=== PATIENT | female | born 1945 | race Caucasian/White ===

== ENCOUNTER 2017-06-18 23:03 | Inpatient (IN) | payer OTHER ==
[~2017-06-18] VITALS: Ht 160 cm; Wt 85.7 kg
--- NOTE | 2017-06-18 23:10 | NUR ---
Patient arrived from [facility] for Medical Clearance for MHU admission. Patient is on 5150 hold for Danger to Self. Patient was found at home with Soma overdose, patient was considered positive for Suicidal Ideation by [facility] Department.
[2017-06-18] MEDS ORDERED: ASPI-1169 PO (23:12)
[2017-06-18] MEDS ORDERED: FLUO40CA49 PO (23:12)
[2017-06-18] MEDS ORDERED: LEVO175T7 PO (23:12)
[2017-06-18] MEDS ORDERED: SIMV40TA5 PO (23:12)
[2017-06-18] MEDS ORDERED: LISI10TA5 PO (23:12)
[2017-06-18] MEDS ORDERED: FENO160T PO (23:12)
[2017-06-18] MEDS ORDERED: PIOG15TA8 PO (23:12)
[2017-06-18] MEDS ORDERED: SITA50TA PO (23:12)
[2017-06-18] MEDS ORDERED: CANA100T PO (23:12)
[2017-06-18] MEDS ORDERED: AMLO2.5T PO (23:12)
[2017-06-18] MEDS ORDERED: HYDR-3026 PO (23:12)
--- NOTE | 2017-06-19 00:35 | NUR ---
Pt. admitted to GPS, under care of Dr. Montanez Belongs List completed
[2017-06-19 01:00] VITALS: BP 145/90
[2017-06-19] MEDS ORDERED: MAGNESIUM HYDROXIDE 30 ML LIQUID UDC PO PRN (01:30)
[2017-06-19] MEDS ORDERED: MAG HYDROX/AL HYDROX/SIMETH 30 ML LIQUID UDC PO PRN (01:30)
[2017-06-19] MEDS ORDERED: ACETAMINOPHEN 325 MG TABLET PO PRN (01:30)
[2017-06-19] MEDS ORDERED: LORAZEPAM 0.5 MG TABLET PO PRN (01:30)
--- NOTE | 2017-06-19 01:30 | NUR ---
GPS:Patient Admitted from er via w/c for MHU admission. Patient is on 5150 hold for Danger to Self. Patient was found at home with Soma overdose, patient was considered positive for Suicidal Ideation by [facility] Department.a/o x2 ambulatory,no c/o pain or discomfort this time.
[2017-06-19] MEDS: TEMAZEPAM 7.5 MG CAPSULE PO PRN ×2 (02:01→20:55)
--- NOTE | 2017-06-19 02:02 | NUR ---
GPS: PATIENT C/O INSOMNIA. RESTORIL 7.5 MG PO GIVEN.
[2017-06-19] MEDS ORDERED: TEMAZEPAM 7.5 MG CAPSULE ONE (02:09)
--- NOTE | 2017-06-19 03:04 | NUR ---
GPS: PATIENT SLEEPING EYE CLOSE. PRN EFFECTIVE.
--- NOTE | 2017-06-19 06:52 | NUR ---
GPS: REMAIN CALM AND COOPERATIVE WITH MEDS AND CARE. SHOWERED THIS MORNING.SLEPT 1:45 HRS THROUGH THE NIGHT. CONTINUE PLAN OF CARE.
[2017-06-19 07:30] VITALS: BP 119/81
--- NOTE | 2017-06-19 12:28 | NUR ---
UR Note: BRANT faxed current clinicals to [facility] [[phone]/ FX:([phone]]. Tracking # [id number]
[2017-06-19] MEDS ORDERED: DEXTROSE 50% 50 ML DISP.SYRIN IV PRN (13:00)
[2017-06-19] MEDS ORDERED: INSULIN REGULAR, HUMAN 300 UNIT/3 ML VIAL SQ PRN (13:00)
--- NOTE | 2017-06-19 16:05 | NUR ---
Initial discharge instructions: Pt resides at home with her [[address],[place],[address];[phone]].SW spoke with pt's who stated he would like the pt to return home.Per pt, she would like to return home upon discharge.BRANT will speak with pt,family,and MD regarding appropriate discharge plans.SW will form a safe and proper discharge.
--- NOTE | 2017-06-19 16:10 | NUR ---
DC Note Thursday06/20/2017: Patient will be discharged back home to her [[address],[place],[address];[phone]].BRANT spoke with pt's , Nima Lepe [phone] who stated he would pick pack worker the patient at 10:00 am. Patient is aware and agreeable with discharge plans. Patient will follow-up with ([facility]) [[id number] [place] [id number]; ]. Patient will be assigned a Psychiatrist through [facility]. Patient's prescriptions may be called to [facility] in [place], [place].
[2017-06-19] MEDS: BISMUTH SUBSALICYLATE 262 MG/15 ML UDC PO PRN ×2 (16:13→22:31)
[2017-06-19 16:56] VITALS: BP 113/60
[2017-06-19] MEDS: BLOOD SUGAR DIAGNOSTIC 1 EACH STRIP VI SCH ×2 (17:35→20:45)
--- NOTE | 2017-06-19 17:54 | NUR ---
GPS/ RN- Received call from Dr Baez to discharge patient home tomorrow to ; spoke with patients Nima, he will lease picker /patient tomorrow around 10am.
[2017-06-19] MEDS ORDERED: SIMVASTATIN 40 MG TABLET PO SCH (18:00)
[2017-06-19 20:01] VITALS: BP 132/66
--- NOTE | 2017-06-20 02:45 | NUR ---
Pt is alert and oriented x 4. Pt denies s.i. Pt is being picked up by her Nima to go back home in [place], [place]. Pt is cooperative with process. Pt states that she has her regular diecast machine operator and psychiatrist. Discharge instructions are given pt verbalizes understanding. No new psych medications are initiated. Pt has Proxac at home to take it as ordered. No distress noted.
[2017-06-20] MEDS: BISMUTH SUBSALICYLATE 262 MG/15 ML UDC PO PRN ×2 (05:15→11:40)
[2017-06-20] MEDS: BLOOD SUGAR DIAGNOSTIC 1 EACH STRIP VI SCH ×2 (06:33→12:09)
[2017-06-20] MEDS ORDERED: LEVOTHYROXINE SODIUM 175 MCG TABLET PO SCH (07:00)
[2017-06-20 07:16] LABS: CREATININE 1.3 mg/dL (0.6-1.3); MAGNESIUM 1.5 mg/dL (1.8-2.4); PHOSPHOROUS 4.1 mg/dL (2.5-4.9); POTASSIUM 3.5 mmol/L (3.5-5.1)
[2017-06-20 07:17] LABS: BASOPHILS # (AUTO) 0.1 K/uL (0.0-8.0); BASOPHILS % (AUTO) 1.1 % (0.0-2.0); EOSINOPHILS # (AUTO) 0.2 K/uL (0.0-0.7); EOSINOPHILS % (AUTO) 4.5 % (0.0-7.0); HEMATOCRIT 46.9 % (37-47); HEMOGLOBIN 15.5 G/DL (12.0-16.0); LYMPHOCYTES # (AUTO) 1.3 K/UL (0.8-4.8); MEAN CORPUSCULAR HEMOGLOBIN 32.5 UUG (27.0-31.0); MEAN CORPUSCULAR HGB CONC 33 g/dL (32.0-37.0); MEAN CORPUSCULAR VOLUME 98.1 FL (81.0-99.0); MONOCYTES # (AUTO) 0.4 K/UL (0.1-1.30); MONOCYTES % (AUTO) 7.8 % (0.0-11.0); NEUTROPHILS # (AUTO) 3.5 K/UL (1.8-8.9); NEUTROPHILS % (AUTO) 62.6 % (38.5-71.5); PLATELET COUNT (AUTO) 304 K/UL (150-450); RED BLOOD CELL COUNT(AUTO) 4.78 MIL/UL (4.2-5.4); WHITE BLOOD COUNT (AUTO) 5.5 K/UL (4.0-11.2)
[2017-06-20 07:30] VITALS: BP 127/57
[2017-06-20] MEDS ORDERED: LINAGLIPTIN 5 MG TABLET PO SCH (09:00)
[2017-06-20] MEDS ORDERED: AMLODIPINE 2.5 MG TABLET PO SCH (09:00)
[2017-06-20] MEDS ORDERED: Medication Not On Formulary EA (Canagliflozin (Invokana) 100 MG) PO SCH (09:00)
[2017-06-20] MEDS ORDERED: LISINOPRIL 10 MG TABLET PO SCH (09:00)
[2017-06-20] MEDS ORDERED: FLUOXETINE HCL 20 MG CAPSULE PO SCH (09:00)
[2017-06-20] MEDS ORDERED: PIOGLITAZONE HCL 15 MG TABLET PO SCH (09:00)
[2017-06-20] MEDS ORDERED: SITAGLIPTIN PHOSPHATE 50 MG TABLET PO SCH (09:00)
[2017-06-20] MEDS ORDERED: ASPIRIN 81 MG TAB.CHEW PO SCH (09:00)
[2017-06-20] MEDS ORDERED: Medication Not On Formulary EA (Fenofibrate 160 MG) PO SCH (09:00)
[2017-06-20] MEDS ORDERED: FENOFIBRATE NANOCRYSTALLIZED 145 MG TABLET PO SCH (09:00)
[2017-06-20 09:40] VITALS: BP 127/57
[2017-06-20] MEDS ORDERED: MAGNESIUM OXIDE 400 MG TABLET PO ONE (13:00)
== END 2017-06-20 12:30 | disposition home or self-care (01) | DRG 885 ==
LOC: ER 23:04 → GPS 06-19 00:28
PROVIDERS: ADMIT Psychiatry & Neurology Psychiatry; ATTEND Family Medicine
DX: F33.2 Major depressive disorder, recurrent severe without psychotic features (principal); E11.65 Type 2 diabetes mellitus with hyperglycemia; Z88.2 Allergy status to sulfonamides; Z87.891 Personal history of nicotine dependence; E78.5 Hyperlipidemia, unspecified; Z79.84 Long term (current) use of oral hypoglycemic drugs; Z79.899 Other long term (current) drug therapy; G47.00 Insomnia, unspecified; I10 Essential (primary) hypertension; E03.9 Hypothyroidism, unspecified; T50.902D Poisoning by unspecified drugs, medicaments and biological substances, intentional self-harm, subsequent encounter; Z96.653 Presence of artificial knee joint, bilateral
CPT/HCPCS: 36415; 71010; 83735; 84100; 85025; 97161; J1815